=== PATIENT | female | born 1980 | race Caucasian/White ===

== ENCOUNTER 2022-03-21 23:41 | Inpatient (IN) | payer SELFPAY ==
[~2022-03-21] VITALS: Ht 167.6 cm; Wt 77.3 kg
--- NOTE | 2022-03-21 23:40 | NUR ---
G7L6 arrives to unit with complaint of "constant contractions" for the last 2 days. Pt moved here from [place] 2 months ago and has not established care here. Pt states her due date was on Sunday making her 40 and 4 upon arrival. Pt appears visibly uncomfortable. States feeling good movement. Pt with a history of lupus and stroke x 5, and states she bled too much after last delivery. Pt states she is supposed to be on blood thinners but refused this due to hemorrhage with last delivery. Pt states all uncomplicated vaginal deliveries and no problems after . SVE 6/60/-2, membranes intact, vertex position. US and toco applied. Admission assessment started. Vitals obtained. GBS unknown since no care for last 2 months, pt reports they always give her antibiotics in labor just in case.
[2022-03-22] VITALS (27 sets, daily range): BP systolic 101–146; BP diastolic 55–83; PULSE 52–105; TEMP 97.7–98.2
[2022-03-22 00:17] LABS: COLLECTION METHOD CLEAN CATCH
[2022-03-22 00:21] LABS: MEAN CELL VOLUME 86 fl (80.0-100.0); MEAN CORPUSCULAR HEMOGLOBIN 29 pg (27-31); MEAN CORPUSCULAR HGB CONC 33 g/dl (33.0-37.0); MEAN PLATELET VOLUME 11.3 fl (7.4-10.4); PLATELET COUNT 334 K/mm3 (130-400); RED BLOOD COUNT 3.85 M/mm3 (4.10-5.30); REDCELL DISTRIBUTION WIDTH-CV 15.1 % (11.5-14.5)
[2022-03-22 00:28] LABS: MUCOUS Present (NOT PRESENT); PH 6 (5-8); URINE APPEARANCE Cloudy (CLEAR/HAZY); URINE BACTERIA Many /hpf (NONE SEEN); URINE BILIRUBIN Negative (NEGATIVE); URINE BLOOD 1+ (NEGATIVE); URINE COLOR Amber (YELLOW); URINE GLUCOSE Negative (NEGATIVE); URINE KETONE Negative (NEGATIVE); URINE LEUKOCYTE ESTERASE 2+ (NEGATIVE); URINE NITRATE Negative (NEGATIVE); URINE PROTEIN(semi-quant) Negative (NEGATIVE); URINE WBC 20-50 /hpf (0-2)
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
[2022-03-22 00:38] LABS: TRICYCLIC ANTIDEPRESS URINE NEGATIVE
[2022-03-22 00:39] LABS: ALBUMIN 2.6 gm/dL (3.5-5.0); BILIRUBIN,TOTAL 0.3 mg/dL (0.2-1.2); CALCIUM 8.8 mg/dL (8.4-10.2); CREATININE, serum 0.66 mg/dL (0.57-1.11); POTASSIUM 3.9 mmol/L (3.5-4.5); TOTAL PROTEIN 7.1 gm/dL (6.2-8.1)
[2022-03-22 00:50] LABS: BAND 1 % (0-10); EOSINOPHIL 1 % (0-4); LYMPHOCYTE 19 % (20.0-51.0); NEUTROPHILS 75 % (42.0-75.2); PLATELET ESTIMATE NORMAL (NORMAL)
--- NOTE | 2022-03-22 01:00 | NUR ---
18G IV started in right forearm with 1 attempt. Admission labs obtained off IV start. Lactated Ringers infusing to gravity. Consents reviewed and signed with patient and spouse.
[2022-03-22 01:23] LABS: HIV 1/2 Antibodies Non-Reactive; HIV-1p24 Antigen Non-Reactive
--- NOTE | 2022-03-22 03:35 | NUR ---
0325 - Pt calls out stating that she feels like the baby is coming and is pushing involuntarily. Dr. Olsen called to bedside for delivery. 0330 - Positioned patient into footplates. Dr. Olsen at bedside, gowned and gloved at perineum. Pt pushing with contractions. Nursery RN Ese Encarnacion at bedside. 0335 - Spontaneous rupture of membranes, clear fluid. Spontaneous delivery of viable infant girl. Infant stimulated by Dr. Olsen. Cord clamped x 2 and cut by FOB. directly to warmer per mothers request. Cord blood obtained. 0337 - Spontaneous delivery of intact placenta. Fundus firm and at umbilicus. Pitocin started at 333 mL/hr. Perineum intact per Dr. Olsen. 0340 - New chux beneath patient. Peripad to perineum, pt refusing ice pack. Repositioned in bed for comfort. recovery started. See physician delivery note.
--- NOTE | 2022-03-22 05:45 | NUR ---
Pt ambulated to bathroom independently and able to void 500 mL. Pericare explained and provided. Clean gown on. Mesh panties and peripad applied. Pt transferred to room 214 with belongings and spouse.
--- NOTE | 2022-03-22 16:11 | NUR ---
Candice with [facility] has a car seat for patient and will install in patient's vehicle on 03/23/2022 at 1:00 in the emergency room parking lot. Worker met with patient and patient's nurse and advised of the above information.
[2022-03-22 17:55] LABS: HEPATITIS B SURFACE ANTIGEN Negative (Negative); HEPATITIS C VIRUS ANTIBODY Negative (Negative)
[2022-03-23 00:30] VITALS: BP 141/71; PULSE 63; TEMP 97.4
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
--- NOTE | 2022-03-23 01:00 | NUR ---
This nurse concerned for patient and childrens safety. FOB appears to be under the influence of illegal substance while visiting in the hospital. Exhibits irrational, impulsive, and erratic behavior. Blood shot eyes. Pt states she thinks he is using meth but is accusing her of using drugs.
--- NOTE | 2022-03-23 09:20 | NUR ---
Initial visit attempt; Family sleeping, Game And Fish Protector left card of congratulations and God's blessings along with information regarding the availability of Spiritual Care at our hospital.
[2022-03-23 16:00] VITALS: BP 122/68; PULSE 82; TEMP 97.6
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
--- NOTE | 2022-03-23 18:40 | NUR ---
PT SAFETY NOTE [employer] officers x 2 on unit, 1 in OB waiting room taliking to FOB. [employer] awaiting copy of Protection order. @ childrn in waiting room with father. 2 children in Triage room with Pt, out of sight of FFOB. in Nsy. Police officers informed that if father is taken into custody other 4 children could not stay at the hospital with the mother. Mother claims she has no one to watch them. Talked to Pt who requests to go home
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
--- NOTE | 2022-03-23 19:35 | NUR ---
Pt asks "what time do I come back to shrimp picker the baby?" Instructed pt to call in and ask for NSY to make a plan for discharge. Pt verbalizes understanding.
--- NOTE | 2022-03-24 | NUR ---
cerificate confirmation letter located in pt's chart, placed on baby's chart
== END 2022-03-23 19:40 | disposition home or self-care (01) | DRG 807 ==
LOC: LDRO 23:41 → LDR 03-22 00:03 → OB 03-22 00:03
PROVIDERS: ADMIT Obstetrics & Gynecology
PROC: 10E0XZZ Delivery of Products of Conception, External Approach (ICD-10-PCS; principal; 2022-03-22)
DX: O48.0 Post-term pregnancy (principal); Z37.0 Single live birth; O69.81X0 Labor and delivery complicated by cord around neck, without compression, not applicable or unspecified; Z3A.40 40 weeks gestation of pregnancy; Z86.73 Personal history of transient ischemic attack (TIA), and cerebral infarction without residual deficits; Z79.01 Long term (current) use of anticoagulants; Z86.2 Personal history of diseases of the blood and blood-forming organs and certain disorders involving the immune mechanism
CPT/HCPCS: J0595; J2540; J2590; J7120